=== PATIENT | male | born 1985 | race Caucasian/White ===

== ENCOUNTER 2017-03-22 07:34 | Day surgery (SDC) | payer OTHER ==
[~2017-03-22] VITALS: Ht 200.7 cm; Wt 126.0 kg
[~2017-03-22 07:34] MED LIST: 0.9% Sodium Chloride 1,000 ML IV SCH; Sodium Chloride LOK Flush 10 mL Syringe IV PRN; fentaNYL-PF 50 mCg/mL 2 mL Inj IVPUSH PRN
[2017-03-22 07:56] VITALS: BP 150/87; PULSE 72; RESP 16; O2SAT 95
[2017-03-22] MEDS: 0.9% Sodium Chloride 1,000 ML IV SCH ×2 (08:25→08:46)
[2017-03-22 08:53] VITALS: BP 140/67; PULSE 68; RESP 16; O2SAT 98
[2017-03-22 09:00] VITALS: BP 112/65; PULSE 65; RESP 16; O2SAT 99
[2017-03-22 09:09] VITALS: BP 116/65; PULSE 68; RESP 16; O2SAT 97
--- NOTE | 2017-03-22 09:13 | ENDO ---
[address] [address] ENDOSCOPY PROCEDURE PATIENT: ALFIE CRAIG : 1985 MR#: [id number] ADMIT: 03/22/2017 JOB ID: [id number] DATE: 03/22/2017 TYPE OF OPERATION: 1. Esophagogastroduodenoscopy with biopsy. 2. Colonoscopy with biopsy. PREOPERATIVE DIAGNOSIS(ES): Abdominal pain, diarrhea. POSTOPERATIVE DIAGNOSIS(ES): 1. Mild distal erosive esophagitis status post biopsy. 2. Normal colonoscopy status post biopsy. ANESTHESIA: 1. Fentanyl 175 mcg. 2. Versed 9 mg IV administered. COMPLICATIONS: None. BLOOD LOSS: Minimal. DESCRIPTION OF PROCEDURE: After the risks and benefits were explained to the patient, informed consent was obtained. After anesthesia was administered, upper endoscope was then inserted into the mouth intubating to the esophagus, stomach, second portion of duodenum. Mucosa carefully examined. After procedure was done, the scope was withdrawn and the procedure was terminated. Colonoscope was then inserted from rectum to the terminal and mucosa carefully examined. Prep of the patient was fair. After the procedure was done, the scope was withdrawn and the procedure terminated. FINDINGS: Upon inspection of the esophagus, there was mild erosive distal esophagitis that was seen. Z-line located 40 cm from incisors. Upon entering the stomach, the stomach was normal without masses, ulcers or lesions. Retroflexion was normal. Duodenal bulb, first and second portion were normal. Biopsies taken at the duodenum, antrum, body and distal esophagus. Upon inspection of the anus, no masses, hemorrhoids, ulcers, or fissures that were seen. Throughout the entire examination, there were no polyps, masses, or lesions. Biopsies taken of the terminal ileum and random colon. Retroflexion was normal. IMPRESSIONS: 1. Mild distal esophagitis status post biopsy. 2. Normal colonoscopy status post biopsy. RECOMMENDATIONS: 1. Await pathology results. 2. Followup in GI clinic as needed.
[2017-03-22 09:15] VITALS: BP 136/79; PULSE 68; RESP 14; O2SAT 97
--- NOTE | 2017-03-24 18:25 | PATH ---
SURGICAL PATHOLOGY Attending Physician:Chucky Steele MD CASE STATUS: Signed Out PATIENT NAME: ALFIE CRAIG PID: [id number] : 1985 DATE COLLECTED:03/22/2017 17:24 SPECIMEN: 1: Duodenum, Biopsy 2: Stomach, Antrum, Biopsy 3: Gastric, Biopsy 4: Esophagus, Biopsy 5: Ileum, Biopsy 6: Colon, Biopsy CLINICAL HISTORY: ABDOMINAL PAIN 1). DUODENUM BIOPSY 2). ANTRUM BIOPSY (RULE OUT H.PYLORI) 3). GASTRIC BODY BIOPSY (RULE OUT H.PYLORI) 4). DISTAL ESOPHAGUS BIOPSY 5). TERMINAL ILEUM BIOPSY 6). RANDOM COLON BIOPSY FINAL DIAGNOSIS: 1.DUODENUM, BIOPSY: DUODENAL MUCOSA WITH NO DIAGNOSTIC ABNORMALITY. Negative for active inflammation, features of sprue, dysplasia, and malignancy. 2.ANTRUM, BIOPSY: PORTIONS OF GASTRIC ANTRAL MUCOSA WITH CHRONIC GASTRITIS. No definite H. pylori organisms identified by H&E stain and immunohistochemistry studies Negative for intestinal metaplasia, dysplasia and malignancy. 3.GASTRIC BODY, BIOPSY: PORTIONS OF GASTRIC BODY-TYPE MUCOSA WITH CHRONIC GASTRITIS. No definite H. pylori organisms identified by H&E stain and immunohistochemistry studies. Negative for intestinal metaplasia, dysplasia and malignancy. 4.DISTAL ESOPHAGUS, BIOPSY: SQUAMOCOLUMNAR JUNCTIONAL MUCOSA WITH NO DIAGNOSTIC ABNORMALITY. THE SQUAMOUS MUCOSA CONTAINS RARE, PATCHY EOSINOPHILS (APPROXIMATELY 5 EOSINOPHILS PER HIGH-POWER FIELD), SUGGESTIVE OF REFLUX ESOPHAGITIS. Negative for intestinal metaplasia, dysplasia and malignancy. 5.TERMINAL ILEUM, BIOPSY: PORTIONS OF SMALL BOWEL MUCOSA WITH NO DIAGNOSTIC ABNORMALITY. Negative for granulomas, active inflammation, dysplasia and malignancy. 6.RANDOM COLON, BIOPSIES: SUPERFICIAL PORTIONS OF COLORECTAL MUCOSA WITH NO DIAGNOSTIC ABNORMALITY. Negative for granulomas, active inflammation, dysplasia and malignancy. ICD10 K29.7 NOTE: 6. Sections demonstrate superficial portions of colorectal mucosa with patchy intraepithelial lymphocytosis (approximately 5 lymphocytes per 100 epithelial cells). These findings do not meet the criteria for microscopic colitis. There is no evidence of granulomas, active inflammation, dysplasia or malignancy. IMMUNOHISTOCHEMISTRY: Block 2A: H. pylori: Negative. Block 3A: H. pylori: Immunopositive debris; not diagnostic for viable H.pylori organisms. * This test was developed and its performance characteristics determined by [employer]. It has not been cleared or approved by the U.S. Food and Drug Administration. The FDA has determined that such clearance or approval is not necessary. This test is used for clinical purposes. It should not be regarded as investigational or for research. GROSS DESCRIPTION: The specimen is received in six formalin filled containers labeled with the patient's name. 1). The specimen is labeled "duodenum" and consists of 2 portions of tissue which aggregate to 0.2 x 0.2 x 0.2 CM. The specimen is entirely submitted in cassette 1A. 2). The specimen is labeled "antrum" and consists of 2 portions of tissue which aggregate to 0.4 x 0.3 x 0.2 CM. The specimen is entirely submitted in cassette 2A. 3). The specimen is labeled "gastric body" and consists of 2 portions of shoe which aggregate to 0.3 x 0.3 x 0.2 CM. The specimen is entirely submitted in cassette 3A. 4). The specimen is labeled "distal esophagus" and consists of 3 portions of tissue which aggregate to 0.3 x 0.3 x 0.2 CM. The specimen is entirely submitted in cassette 4A. 5). The specimen is labeled "terminal ileum" and consists of a 0.4 x 0.2 x 0.2 CM portion of tissue which is entirely submitted in cassette 5A. 6). The specimen is labeled "random colon" and consists of multiple portions of tissue which aggregate to 0.4 x 0.4 x 0.2 CM. The specimen is entirely submitted in cassette 6A. 03/22/2017AK MICRO DESCRIPTION: See diagnosis. ICD-9 CODES: CPT CODES: 1: 15390 2: 91101, 06792 3: 63288, 19398 4: 89287 5: 38294 6: 37627 PROCEDURE/ADDENDA: Addendum SPI Addendum Diagnosis Addendum issued in error. Addendum Comment {Not Entered} Electronically Signed Out Isabel Jewell MD Electronically Signed Out Isabel Jewell MD [facility], [place] [address] Technical component performed at [facility], [address], [place], [address]
== END 2017-03-22 23:59 ==
LOC: END 07:34
PROVIDERS: ATTEND Internal Medicine Gastroenterology
DX: R19.7 Diarrhea, unspecified (principal); K29.50 Unspecified chronic gastritis without bleeding; K20.9 Esophagitis, unspecified; R10.84 Generalized abdominal pain; F17.210 Nicotine dependence, cigarettes, uncomplicated
CPT/HCPCS: 43239; 45380; 87507; 88305; 88342; 89055; 99153; G0500; J2250; J3010; J7030

== ENCOUNTER 2017-05-07 15:47 | Emergency (ER) | payer MEDICAID ==
[~2017-05-07] VITALS: Ht 200.7 cm; Wt 127.3 kg
[2017-05-07 15:49] VITALS: BP 136/82; PULSE 102; RESP 20; O2SAT 100
[2017-05-07 17:53] LABS: BASOPHILS % (AUTO) 0.2 % (0-3); EOSINOPHILS % (AUTO) 1.4 % (0-5); MONOCYTES % (AUTO) 4.9 % (4-12); Mean Corpuscular Hemoglobin 30.1 pg (27.0-35.0); Mean Corpuscular Volume 85.4 fL (81-100); Platelet Count 195 bil/L (150-400)
[2017-05-07 18:02] LABS: Magnesium 1.7 mg/dL (1.6-2.6)
--- NOTE | 2017-05-07 18:06 | ED.REPORT ---
HPI-Abd Pain M Under 40 Date of Service May 07, 2017 ED Provider: Jose Joiner DO Pt is a 31 year old male with a history of HTN, colonoscopy, and GERD who presents to the ED complaining of lower abdominal pain onset 2 days ago. He c/o associated nausea, diarrhea, subjective fever, and vomiting. He denies any other symptoms. Pt took Aleve prior to arrival. He denies a history of appendectomy. The pt denies exposure to anyone ill recently. Nursing Notes Stated Complaint: SEVERE STOMACHE PAIN Chief Complaint: Male Abdominal Pain Nursing Notes Reviewed: Yes Allergies: Coded Allergies: No Known Drug Allergies (Verified Allergy, Unknown, 03/22/17) General Time Seen by MD: 18:06 Chief Complaint Abdominal pain Hx Obtained From: Patient Arrived By: Walk-in Sudden in Onset?: No Onset Occurred: 2 days ago Symptom Duration: Since onset Location: : Abdomen lower Quality: Painful Radiation: : Does not radiate Severity: Current: Moderate Severity: Maximum: Moderate Recent Healthcare: Recent doctor visit Similar Sx Previous: No Past Medical History Past Medical History Anxiety Rectal fissure Reports: Asthma, GERD, Hypertension Past Surgical History Colonscopy Smoking History Current Every Day Smoker Social History Alcohol Use: "Social" Drug Use: THC 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 Physical Exam Initial Vital Signs Vital Signs (First) Date Time Temp Pulse Resp B/P Pulse Ox O2 Delivery O2 Flow Rate FiO2 05/07/17 15:49 36.8 102 20 136/82 100 Room Air Initial VS: Reviewed Head / Eyes: Atraumatic, Normocephalic Neck: Supple, Full range of motion Extremities: Vascular intact, Neuro intact Skin: Warm, Dry, No cyanosis Neurologic: Alert, Oriented, Nonfocal Psychiatric: Mood/affect normal, Behavior normal General/Constitutional: Awake, Alert Respiratory / Chest: Atraumatic, Breath sounds NL, Breath sounds = bilat Cardiovascular: Heart rate NL, Regular rhythm, Heart sounds NL Abdomen: Atraumatic, Soft Moderate RLQ tenderness Back: Atraumatic, Full range of motion Interpretation & Diagnostics Lab Results Interpretation Result Diagram: 05/07/17 1635 05/07/17 1635 Test 05/07/17 16:35 05/07/17 18:04 05/07/17 20:08 White Blood Count 5.7th/mm3 (3.8-10.1) Red Blood Count 5.01mil/mm3 (4.40-5.80) Hemoglobin 15.1g/dL (13.8-17.2) Hematocrit 42.8% (41.0-50.0) Mean Corpuscular Volume 85.4fL (81-100) Mean Corpuscular Hemoglobin 30.1pg (27.0-35.0) Mean Corpuscular Hemoglobin Concent 35.3% (32.0-37.0) Red Cell Distribution Width 12.4% (12.3-15.4) Platelet Count 195bil/L (150-400) Neutrophils (%) (Auto) 78.0% (40-74) Lymphocytes (%) (Auto) 15.1% (14-46) Monocytes (%) (Auto) 4.9% (4-12) Eosinophils (%) (Auto) 1.4% (0-5) Basophils (%) (Auto) 0.2% (0-3) Sodium Level 138mEq/L (134-144) Potassium Level 3.5mEq/L (3.5-5.2) Chloride Level 102mEq/L (97-108) Carbon Dioxide Level 21mmol/L (18-29) Blood Urea Nitrogen 20mg/dL (6-20) Creatinine 0.90mg/dL (0.76-1.27) Estimat Glomerular Filtration Rate 105mL/min (>59) Glucose Level 101mg/dL (60-99) Calcium Level 9.1mg/dL (8.5-10.1) Magnesium Level 1.7mg/dL (1.6-2.6) Total Bilirubin 0.6mg/dL (0.0-1.2) Aspartate Amino Transf (AST/SGOT) 28U/L (0-50) Alanine Aminotransferase (ALT/SGPT) 37U/L (0-44) Alkaline Phosphatase 68U/L (25-150) Total Protein 6.9g/dL (6.4-8.4) Albumin 4.0g/dL (3.4-5.0) Lipase 24U/L (13-60) Hold Tyson Top Tube Received (Received) Urine Color Yellow (YELLOW) Urine Appearance Clear (CLEAR,HAZY) Urine pH 5.0 (5.0-8.0) Urine Specific [place] 1.010 (1.003-1.035) Urine Protein Negativemg/dL (NEG,TRACE) Urine Glucose (UA) Negativemg/dL (NEGATIVE) Urine Ketones Negativemg/dL (NEGATIVE) Urine Occult Blood Trace (NEGATIVE) Urine Nitrite Negative (NEGATIVE) Urine Bilirubin Negative (NEGATIVE) Urine Urobilinogen Normalmg/dL (NORMAL) Urine Leukocyte Esterase Negative (NEGATIVE) Urine RBC 0-2/hpf (0-2) Urine WBC 0-5/hpf (0-5) Urine Epithelial Cells Occasional/hpf (NONE-MOD) Urine Crystals None seen (NONE SEEN) Urine Bacteria Few/hpf (NONE-FEW) Urine Hyaline Casts None/lpf (NONE) Urine Granular Casts None seen (NONE SEEN) Urine Waxy Casts None seen (NONE SEEN) Urine Red Blood Cell Casts None seen (NONE SEEN) Urine White Blood Cell Casts None seen (NONE SEEN) Urine Mucus None seen (None Seen) Urine Trichomonas None seen (NONE SEEN) Urine Yeast None (NONE SEEN) Urinalysis Comment None Urine Culture Reflexed Not indicated Hold Urine Received (Received) CT Abd / Pelvis Interpretation IMPRESSION: 1. Hepatomegaly with steatosis. 2. No visualized cause of right lower quadrant pain. Appendix is unremarkable. Dictated by: Narcisa Nickerson M.D. on 05/07/2017 at 18:58 Study type: Abdominal CT no contrast Interpretation / Wet Read by: Interpret - Radiologist Re-Eval/Medical Decision Source of Hx: Old records Re-Evaluation/Progress : Time of Eval: 20:42 Re-Evaluation/Progress Note: Pt rechecked. Informed pt of plan for discharge. Pt understands and agrees with plan for discharge. F/U instructions and RTER warnings given. All questions addressed. Counseled Regarding: Diagnosis, Lab results, Need for follow-up, When/why to return to ED Patient Discharge & Departure Primary Impression: Abdominal pain Abdominal location: unspecified location Qualified Code: R10.9 - Unspecified abdominal pain Additional Impression: Diarrhea Diarrhea type: unspecified type Qualified Code: R19.7 - Diarrhea, unspecified Disposition: Home Discharge Condition All VS Reviewed: Yes Condition: Stable Patient Instructions: Abdominal Pain (ED), Acute Diarrhea (ED) Additional Instructions: Your CAT scan and labs were normal. Don't drive tonight as you have received sedating medications. I suspect your abdominal pain is related to the diarrhea. Take [place] 1-2 every 6 hours as needed for the pain. Do not drive or drink alcohol or consume acetaminophen while on [place]. Take 1-2 Zofran every 8 hours as needed for nausea. Call your primary care provider on Tuesday for a follow up appointment next week. Return to the Emergency Department for any new or worrisome symptoms. Referrals: Raheem Horn MD (PCP) Scribe Attestation Portions of this note were transcribed by Rasheeda Wesley. I, Dr. Joiner personally performed the history, physical exam and medical decision-making; I reviewed and confirmed the accuracy of the information in the transcribed note. Signed by : Lam Ca, 05/07/17. copies to: Raheem Horn MD, Todd P DO May 07, 2017 18:06 Rasheeda Ochoa May 07, 2017 18:12
[2017-05-07] MEDS ORDERED: Ondansetron 2 mg/mL 2 mL Inj IVPUSH PRN (18:20)
[2017-05-07] MEDS ORDERED: HYDROmorphone 0.5 mg/0.5 mL iSecure Syringe IVPUSH PRN (18:20)
[2017-05-07] MEDS ORDERED: 0.9% Sodium Chloride 1,000 ML IV ONE (18:20)
--- NOTE | 2017-05-07 19:01 | DRSVH ---
PROCEDURE: CT ABDOMEN AND PELVIS WITH CONTRAST ([id number]) INDICATIONS: RLQ pain TECHNIQUE: After the administration of intravenous contrast, 5 mm thick sections acquired from the diaphragm to the symphysis. 5 mm coronal and sagittal reformats were acquired. For radiation dose reduction, the following was used: automated exposure control, adjustment of mA and/or kV according to patient siz e. COMPARISON: None. FINDINGS: Image quality: Excellent. ABDOMEN: Lung bases: Lung bases are clear. Heart size is normal. Solid organs: Liver is enlarged. The spleen is normal in size and enhancement. Mild hepatic steatos is is present. Gallbladder is unremarkable. Biliary system is non dilated. Pancreas enhances normal ly. No adrenal nodules. Kidneys demonstrate normal size and enhancement, without hydronephrosis. Peritoneum and bowel: Bowel loops demonstrate normal wall thickness and caliber. No free fluid or a ir. Appendix is unremarkable. Nodes and vessels: No retroperitoneal or mesenteric adenopathy by size criteria. Aorta and inferior vena cava are normal in size. Miscellaneous: No ventral hernias. PELVIS: Genitourinary: Bladder wall thickness is normal. Miscellaneous: No inguinal hernias or adenopathy. Bones: No suspicious bony lesions. No vertebral body compression fractures. IMPRESSION: 1. Hepatomegaly with steatosis. 2. No visualized cause of right lower quadrant pain. Appendix is unremarkable. Dictated by: Narcisa Nickerson M.D. on 05/07/2017 at 18:58 Approved by: Narcisa Nickerson M.D. on 05/07/2017 at 19:00
[2017-05-07 19:17] VITALS: BP 112/47; PULSE 68; RESP 20; O2SAT 98
[2017-05-07] MEDS ORDERED: _Ondansetron ODT 4 mg Tablet PO PRN (20:40)
[2017-05-07] MEDS ORDERED: _HYDROcodone/APAP 5-325 mg Tablet PO PRN (20:40)
[2017-05-07 20:48] LABS: APPEARANCE,URINE CLEAR (CLEAR,HAZY); COLOR,URINE YELLOW (YELLOW); OCCULT BLOOD,URINE TRACE (NEGATIVE); UROBILINOGEN,URINE NORMAL (NORMAL)
[2017-05-07 21:00] VITALS: BP 118/50; PULSE 67; RESP 20; O2SAT 98
[2017-05-08] MEDS ORDERED: Sodium Chloride LOK Flush 10 mL Syringe IVFLUSH SCH (00:30)
== END 2017-05-07 21:00 | disposition home or self-care (01) ==
LOC: SED 15:47
DX: R10.31 Right lower quadrant pain (principal); R19.7 Diarrhea, unspecified; R11.2 Nausea with vomiting, unspecified; R50.9 Fever, unspecified; I10 Essential (primary) hypertension; J45.909 Unspecified asthma, uncomplicated; K21.9 Gastro-esophageal reflux disease without esophagitis; F41.9 Anxiety disorder, unspecified; F17.200 Nicotine dependence, unspecified, uncomplicated; Z98.890 Other specified postprocedural states
CPT/HCPCS: 74177; 80053; 81000; 83690; 83735; 85025; 96361; 96374; 96375; 99285; J1170; J2405; J7030; Q9967